=== PATIENT | male | born 1965 | race Caucasian/White ===

== ENCOUNTER → 2016-03-03 | Outpatient (CLI) | payer OTHER ==
[~2016-03-03] MED LIST: GADOBUTROL 10 ML VIAL IVP ONE
--- NOTE | 2016-03-03 18:30 | MR ---
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 Technique: Axial T2 single shot FSE with breath-hold and fat saturation, axial 2-D FIESTA with fat sa turation, axial T1-weighted in and out of phase, coronal 3-D FIESTA fat saturation, and axial LAVA wi th breath-hold precontrast and dynamic imaging post contrast was obtained. 9 mL of Gadavist IV contra st were utilized. Findings: Comparison to prior MRI study from June 20, 2015. There is stable in appearance of a thin walled cyst along the posterior superior margin of the pancre atic body that measures 22 x 17 x 17 mm in transverse, AP, and longitudinal dimensions (previously re ported measuring 20 x 15 x 18 mm) an there appears to be a thin septation associated with the cyst. N o solid component or enhancement pattern is seen following contrast administration. No additional dick creatic lesions are seen. Within the left lobe liver lateral segment near the dome there is a stable simple cyst measuring 9 x 7 mm. No significant liver lesion is seen. Within the midportion of the right kidney posteriorly ther e is a stable 7 x 0.5 mm cysts. There is also a hemorrhagic or proteinaceous type cyst mid to lower r ight kidney posteriorly measuring about 6 mm also stable. No new renal lesion is seen. The spleen, gallbladder, bile ducts, pancreas, and adrenals are all normal in appearance without mas s or cystic lesion. There is no periaortic lymphadenopathy or ascites. Bowel loops are normal in zainab earance. Bone marrow signal is normal. The visualized lower thoracic spinal cord is normal in contour as well as normal appearing nerve roots to the level of the iliac crest. Impression: 1. Stable benign-appearing epithelial type cyst along the posterior superior margin of the pancreatic body. There is small septation now seen. Consider one additional followup study in one year to confi rm stability and benign features. 2. Stable benign-appearing subcentimeter right renal cysts. 3. Stable small subcentimeter incidental cyst left lobe liver lateral segment.
== END ==
LOC: FIMAGING 09:40
PROVIDERS: ATTEND Internal Medicine
DX: K86.2 Cyst of pancreas (principal); N28.1 Cyst of kidney, acquired; K76.89 Other specified diseases of liver
CPT/HCPCS: A9585